=== PATIENT | male | born 1935 | race Caucasian/White ===

== ENCOUNTER → 2017-07-31 | Outpatient (CLI) | payer MEDICARE, BC ==
[~2017-07-31] MED LIST: CALCAVITDA PO; EYE VITAMIN-MI1 EACH PO; FURO40 PO; IBUP400; KETO10 PO; LAVAP17G; POTCHL20ER PO; PROBIOTIC1 EAC1; STOOL SOFTENER1 EACH PO; [UNRECOGNIZED DRUG - OTHER] PO
[2017-07-31 15:02] LABS: BASOPHILS ABSOLUTE AUTO 0.03 K/mm3 (0.00-0.23); BASOPHILS PERCENT AUTO 0 % (0-2); EOSINOPHILS ABSOLUTE AUTO 0.19 K/mm3 (0.00-0.68); EOSINOPHILS PERCENT AUTO 3 % (0-6); Hematocrit 39.5 % (37.0-53.0); Hemoglobin 13.1 g/dL (13.5-17.5); IMMATURE GRAN ABSOLUTE AUTO 0.12 K/mm3 (0.00-0.10); IMMATURE GRAN PERCENT AUTO 2 % (0-1); LYMPHOCYTES ABSOLUTE AUTO 2.01 K/mm3 (0.84-5.20); LYMPHOCYTES PERCENT AUTO 28 % (21-46); MONOCYTES ABSOLUTE AUTO 0.64 K/mm3 (0.16-1.47); MONOCYTES PERCENT AUTO 9 % (4-13); Mean Corpuscular HGB 29.1 pg (26.0-34.0); Mean Corpuscular HGB Conc 33.2 g/dL (31.5-36.5); Mean Corpuscular Volume 88 fL (80-100); NEUTROPHILS ABSOLUTE AUTO 4.27 K/mm3 (1.96-9.15); NEUTROPHILS PERCENT AUTO 59 % (41-73); Platelet Count 243 K/mm3 (150-400); RDW Coefficient Variation 13.1 % (11.7-14.2); RDW Standard Deviation 41.6 fL (35.1-46.3); White Blood Cell Count 7.26 K/mm3 (4.00-11.30)
[2017-07-31 15:17] LABS: Alanine Aminotransfer (ALT/SGP 35 U/L (12-78); Albumin, Blood 3.5 g/dL (3.4-5.0); Alk Phos 67 U/L (40-126); Anion Gap 6 mmol/L (6-16); Aspartate Aminotrans (AST/SGOT 21 U/L (12-37); Bilirubin, Total 0.3 mg/dL (0.1-1.0); Blood Urea Nitrogen 8 mg/dL (8-24); Bun/Creatinine Ratio 10.5 (12.0-20.0); CO2, Blood 32 mmol/L (21-32); Chloride, Blood 105 mmol/L (98-108); Creatinine, Blood 0.76 mg/dL (0.60-1.20); Globulin, Blood 3.5 g/dL (2.2-4.0); Glomerular Filtration Rate >60 (60-); Glucose, Blood 95 mg/dL (70-99); Potassium, Blood 4.1 mmol/L (3.5-5.5); Sodium, Blood 143 mmol/L (136-145)
== END | disposition home or self-care (01) ==
LOC: LAB SHORT 14:57 → LAB EV 14:57
PROVIDERS: General Practice
DX: J40 Bronchitis, not specified as acute or chronic (principal)
CPT/HCPCS: 80053; 85025; 87070; 87077; 87185

== ENCOUNTER 2019-01-12 08:09 | Day surgery (SDC) | payer MEDICARE, BC ==
[~2019-01-12] VITALS: Ht 185.4 cm; Wt 94.6 kg
[~2019-01-12 08:09] MED LIST changes: +ELIQUIS5 MG PO; +GAVILAX17 GM PO; +Klor-Con 1010 MEQ PO; +PRESERVISION A1 EACH PO; +PROLIA60 MG/1 ML SC
--- NOTE | 2019-01-12 10:20 | NUR ---
History, Chart, Medications and Allergies reviewed before start of procedure. Lungs WITH FAINT CRACKLES IN BASES BILATERALLY Surgical site prepped with 2% Chlorhexidine cloth wipe. Patient confirms NPO status and agrees with scheduled surgery. Pre-Op teaching done. Pt verbalizes understanding. Patient reports completing Chlorhexadine shower X2 prior to admission to hospital. PT GIVEN DOUNEB INHALER.
--- NOTE | 2019-01-12 15:14 | NUR ---
"DAY SURGERY RN | DISCHARGE VSS. A/O. Pain and nausea decreasing. Steady on feet, stand-by assist. Discharge and Rx given to patient and at bedside. Ice pack given to patient. Taken by this RN to front entrance in wheelchair. Site C/D/I."
== END 2019-01-12 23:16 | disposition home or self-care (01) ==
LOC: ORSCMMR 08:09 → ORD 09:00 → ORSCMMR 09:00
PROVIDERS: Surgery
PROC: 0YU60JZ Supplement Left Inguinal Region with Synthetic Substitute, Open Approach (ICD-10-PCS; principal; 2019-01-12 10:15)
DX: K40.90 Unilateral inguinal hernia, without obstruction or gangrene, not specified as recurrent (principal); D17.6 Benign lipomatous neoplasm of spermatic cord; I25.10 Atherosclerotic heart disease of native coronary artery without angina pectoris; I48.91 Unspecified atrial fibrillation; I10 Essential (primary) hypertension; G47.33 Obstructive sleep apnea (adult) (pediatric); J44.9 Chronic obstructive pulmonary disease, unspecified; R41.3 Other amnesia; G31.9 Degenerative disease of nervous system, unspecified; Z79.01 Long term (current) use of anticoagulants; Z79.899 Other long term (current) drug therapy; Z87.891 Personal history of nicotine dependence
CPT/HCPCS: 88304; C1781; J0690; J1100; J2370; J2405; J2704; J2710; J3010; J3370; J7120

== ENCOUNTER → 2021-05-03 | Outpatient (CLI) | payer MEDICARE, BC ==
[2021-05-05 05:41] LABS: Campylobacter Sp Not Detected (NOT DETECT)
[2021-05-05 05:42] LABS: Adenovirus F 40/41 Not Detected (NOT DETECT); Astrovirus Not Detected (NOT DETECT); Cryptosporidium Not Detected (NOT DETECT); Cyclospora Cayetanensis Not Detected (NOT DETECT); E. Coli O157 Not Detected (NOT DETECT); Entamoeba Histolytica Not Detected (NOT DETECT); Enteroaggregative E. coli-EAEC Not Detected (NOT DETECT); Enteropathogenic E. coli-EPEC Not Detected (NOT DETECT); Enterotoxigenic E. coli-ETEC Not Detected (NOT DETECT); Giardia Lamblia Not Detected (NOT DETECT); Norovirus GI/GII Not Detected (NOT DETECT); Plesiomonas Shigelloides Not Detected (NOT DETECT); Rotavirus A Not Detected (NOT DETECT); Salmonella Sp Not Detected (NOT DETECT); Sapovirus Not Detected (NOT DETECT); Shiga Toxin-prod E. coli-STEC Not Detected (NOT DETECT); Shigella/Enteroin E. coli-EIEC Not Detected (NOT DETECT); Vibrio Cholerae Not Detected (NOT DETECT); Vibrio Sp Not Detected (NOT DETECT); Yersinia Enterocolitica Detected (NOT DETECT)
== END ==
LOC: LAB SHORT 10:55
PROVIDERS: Chiropractor
DX: R19.7 Diarrhea, unspecified (principal)
CPT/HCPCS: 0097U

== ENCOUNTER → 2023-04-07 | Outpatient (CLI) | payer MEDICARE, BC | END | disposition home or self-care (01) | LOC: LAB SHORT 09:00 → LAB 09:00 | DX: R53.83 Other fatigue (principal) | CPT/HCPCS: 84443 ==

== ENCOUNTER 2024-02-03 10:16 | Day surgery (SDC) | payer MEDICARE, BC ==
[~2024-02-03] VITALS: Ht 185.4 cm; Wt 67.8 kg
[~2024-02-03 10:16] MED LIST changes: +Balanced Salt Epinephrine Irrigation Solution 500 mL IR SCH; +CPAP; +FURO40; +Lidocaine HCl/Pf 1% 5 ML VIAL XX SCH; +MIRALAX17 GM PO; +Moxifloxacin HCL 0.5 MG/0.1 ML 0.4MLSYR RIGHTEYE SCH; +NS 500 ML IV ONE; +PHENYLEPHRINE\\TROPICAMIDE\\TETRACAINE OPHTHALMIC DILATING SOLN RIGHTEYE PRN; +Povidone-Iodine 450 DROP/30 ML Solution ONE; +Povidone-Iodine 450 DROP/30 ML Solution RIGHTEYE SCH; +STIOLTO RESPIMAT4 G1 INH; +Tetracaine HCl/Pf 0.5% Opth Soln 4 ml ONE
[2024-02-03] MEDS ORDERED: BUPROPION XL150 M1 PO (10:37)
[2024-02-03] MEDS ORDERED: NS 500 ML IV ONE (11:02)
[2024-02-03] MEDS ORDERED: Midazolam HCl 1MG / ML 2ML Vial ONE (11:19)
[2024-02-03 11:48] VITALS: BP 133/77
== END 2024-02-03 12:06 | disposition home or self-care (01) ==
LOC: ORSCSDS 10:16
PROVIDERS: Student in an Organized Health Care Education/Training Program
PROC: 08RJ3JZ Replacement of Right Lens with Synthetic Substitute, Percutaneous Approach (ICD-10-PCS; principal; 2024-02-03 11:30)
DX: H25.811 Combined forms of age-related cataract, right eye (principal); Z96.1 Presence of intraocular lens; H35.30 Unspecified macular degeneration; J44.9 Chronic obstructive pulmonary disease, unspecified; G47.33 Obstructive sleep apnea (adult) (pediatric); Z79.899 Other long term (current) drug therapy; I48.91 Unspecified atrial fibrillation; I71.40 Abdominal aortic aneurysm, without rupture, unspecified; F03.90 Unspecified dementia, unspecified severity, without behavioral disturbance, psychotic disturbance, mood disturbance, and anxiety; Z87.891 Personal history of nicotine dependence; Z79.01 Long term (current) use of anticoagulants
CPT/HCPCS: J2250; J7040; V2632